=== PATIENT | male | born 2000 | race Caucasian/White ===

== ENCOUNTER 2019-01-02 12:59 | Emergency (ER) | payer SELFPAY | END 2019-01-02 13:47 | disposition home or self-care (01) | LOC: NAV ERS 12:59 | DX: T78.40XA Allergy, unspecified, initial encounter (principal); S90.812A Abrasion, left foot, initial encounter; S90.811A Abrasion, right foot, initial encounter; B86 Scabies; F17.210 Nicotine dependence, cigarettes, uncomplicated; Z79.899 Other long term (current) drug therapy | CPT/HCPCS: 99282 ==